=== PATIENT | female | born 1950 | race Caucasian/White ===

== ENCOUNTER 2018-12-21 11:59 | Emergency (ER) | payer BC ==
--- NOTE | 2018-12-21 12:57 | CT ---
Head CT Technique: Multiple axial sections through the brain were obtained. Intravenous contrast was not utilized. Comparison: No previous intracranial imaging is available. Findings: Ventricles along with the basal cisterns and sulci over the convexities are within normal limits for the patient's age. No abnormal parenchymal densities are seen. No evidence of intracranial hemorrhage, midline shift or mass effect is seen. Bone window settings were obtained which show no discrete calvarial abnormality. Visualized sinuses are clear. Impression: 1. Nothing acute is appreciated on noncontrast head CT exam. Diagnostic code #1
--- NOTE | 2018-12-21 13:48 | EDM.PDOC ---
ED HPI GENERAL MEDICAL PROBLEM - General Chief Complaint: Neurological Problem Stated Complaint: BALANCE PROBLEMS/HIGH BP Time Seen by Provider: 12/21/18 12:06 Source of Information: Reports: Patient History Limitations: Reports: No Limitations - History of Present Illness INITIAL COMMENTS - FREE TEXT/NARRATIVE: The patient presents with high blood pressure and left leg odd feeling. She was walking last night at the [facility] and she felt like her left foot was slipping on the concrete. She said this has happened before and she went to her provider and she had fluid in her right ear. She was given some medicine. She thinks it was antivert and she did good. She does have to hold on to the wall when this happens. This happened again last night and she went to the clinic at [place] today. Her blood pressure was elevated in the 170s so they sent her over here for further work up. She has no headache, vision changes, fever, chills, cough, congestion, runny nose, chest pain, shortness of breath, abdominal pain, nausea or vomiting. She has no numbness or weakness. She does not have a history of hypertension. She says the last few times she has been in her blood pressure has been elevated. Onset: Gradual Duration: Day(s): (Last night) Location: Reports: Lower Extremity, Left Improves with: Reports: None Worsens with: Reports: None Associated Symptoms: Reports: No Other Symptoms Treatments [employer]: Reports: Other (see below) Other Treatments [employer]: none Headache Pain Score (Numeric/FACES): 1 - Related Data Allergies Allergy/AdvReac Type Severity Reaction Status Date / Time latex Allergy Rash Verified 12/21/18 12:12 EES Allergy Hives Uncoded 12/21/18 12:12 Home Meds: Home Meds Meclizine [Antivert] 25 mg PO Q6H PRN #20 tab 12/21/18 [Rx] Multivitamin [Multivitamins] 1 cap PO DAILY 12/21/18 [History] Past Medical History - Past Surgical History GI Surgical History: Reports: Cholecystectomy Female Surgical History: Reports: Breast Reduction, Hysterectomy Social & Family History - Tobacco Use Smoking Status *Q: Never Smoker - Caffeine Use Caffeine Use: Reports: Coffee - Recreational Drug Use Recreational Drug Use: No ED ROS GENERAL - Review of Systems Review Of Systems: See Below Constitutional: Reports: No Symptoms HEENT: Reports: No Symptoms Respiratory: Reports: No Symptoms Cardiovascular: Reports: No Symptoms Endocrine: Reports: No Symptoms GI/Abdominal: Reports: No Symptoms : Reports: No Symptoms Musculoskeletal: Reports: No Symptoms Skin: Reports: No Symptoms Neurological: Reports: Other (Left leg slipping) ED EXAM, NEURO - Physical Exam Exam: See Below Exam Limited By: No Limitations General Appearance: Alert, No Apparent Distress Ears: Normal External Exam, Normal Canal, Normal TMs, Other (Mild fluid to the right ear) Nose: Normal Inspection Head Exam: Atraumatic, Normocephalic Neck: Normal Inspection Respiratory/Chest: No Respiratory Distress, Lungs Clear, Normal Breath Sounds Cardiovascular: Regular Rate, Rhythm, No Edema, No Murmur GI/Abdominal: Soft, Non-Tender, No Organomegaly, No Mass Neurological: Alert, No Motor/Sensory Deficits, Oriented x 3 EKG INTERPRETATION EKG Date: 12/21/18 Time: 12:51 Rhythm: NSR Rate (Beats/Min): 76 [place]: Normal P-Wave: Present QRS: Normal ST-T: Normal QT: Normal Course - Vital Signs Last Recorded V/S: Last Vital Signs Temp 96.8 F 12/21/18 12:07 Pulse 79 12/21/18 12:07 Resp 20 12/21/18 12:07 BP 172/96 H 12/21/18 12:07 Pulse Ox 99 12/21/18 12:07 - Orders/Labs/Meds Orders: Active Orders 24 hr Category Date Time Status Cardiac Monitoring [RC] . DIRECTED Care 12/21/18 12:29 Active EKG Documentation Completion [RC] STAT Care 12/21/18 12:29 Active Labs: Laboratory Tests 12/21/18 12/21/18 Range/Units 12:45 12:45 WBC 7.95 (3.98-10.04) K/mm3 RBC 4.61 (3.98-5.22) M/mm3 Hgb 13.5 (11.2-15.7) gm/L Hct 42.0 (34.1-44.9) % MCV 91.1 (79.4-94.8) fl MCH 29.3 (25.6-32.2) pg MCHC 32.1 L (32.2-35.5) g/dl RDW Std Deviation 45.3 (36.4-46.3) fL Plt Count 302 (182-369) K/mm3 MPV 8.7 L (9.4-12.3) fl Neut % (Auto) 58.8 (34.0-71.1) % Lymph % (Auto) 32.6 (19.3-51.7) % [place] % (Auto) 7.4 (4.7-12.5) % Eos % (Auto) 0.6 L (0.7-5.8) Baso % (Auto) 0.5 (0.1-1.2) % Neut # (Auto) 4.67 (1.56-6.13) K/mm3 Lymph # (Auto) 2.59 (1.18-3.74) K/mm3 [place] # (Auto) 0.59 H (0.24-0.36) K/mm3 Eos # (Auto) 0.05 (0.04-0.36) K/mm3 Baso # (Auto) 0.04 (0.01-0.08) K/mm3 Sodium 139 (136-145) mEq/L Potassium 4.1 (3.5-5.1) mEq/L Chloride 104 (98-107) mEq/L Carbon Dioxide 28 (21-32) mEq/L Anion Gap 11.1 (5-15) BUN 20 H (7-18) mg/dL Creatinine 1.0 (0.55-1.02) mg/dL Est Cr Clr Drug Dosing 49.80 mL/min Estimated GFR (MDRD) 55 (>60) mL/min BUN/Creatinine Ratio 20.0 H (14-18) Glucose 97 (80-115) mg/dL Calcium 9.3 (8.5-10.1) mg/dL Magnesium 2.3 (1.8-2.4) mg/dl Total Bilirubin 0.2 (0.2-1.0) mg/dL AST 17 (15-37) U/L ALT 27 (14-59) U/L Alkaline Phosphatase 87 (46-116) U/L Troponin I < 0.017 (0.00-0.056) ng/mL Total Protein 7.2 (6.4-8.2) g/dl Albumin 3.5 (3.4-5.0) g/dl Globulin 3.7 gm/dL Albumin/Globulin Ratio 1.0 (1-2) - Re-Assessments/Exams Free Text/Narrative Re-Assessment/Exam: 12/21/18 13:50 I ordered an labs, EKG, and a CT of her head. Her EKG shows a NSR with no acute changes. The CT of her head shows nothing acute. 12/21/18 13:55 Her CBC and CMP looks good. Her troponin is negative. This is an odd presentation for stroke. Her symptoms sound more like an inner ear issue. I will start her on some antivert. I will talk to her about starting something low dose for hypertension. Departure - Departure Time of Disposition: 14:05 Disposition: Home, Self-Care 01 Condition: Good Clinical Impression: Fluid level behind tympanic membrane of right ear, Transient left leg weakness - Discharge Information *PRESCRIPTION DRUG MONITORING PROGRAM REVIEWED*: Not Applicable *COPY OF PRESCRIPTION DRUG MONITORING REPORT IN PATIENT JESIKA: Not Applicable Prescriptions: Meclizine [Antivert] 25 mg PO Q6H PRN #20 tab PRN Reason: Dizziness Referrals: Yokasta Sandoval NP [Primary Care Provider] - Adela Escoto NP [ED Midlevel Provider] - 1 Week Forms: ED Department Discharge Additional Instructions: Take the antivert 25mg by mouth every 6 hours as needed for any dizziness or slipping of your left leg. Keep exercising and that should help with your blood pressure. I have scheduled an MRI of your brain for 1:30. Please come early to register. Follow up with Adela Escoto in our clinic in 1 week. Please return if you are worse. Check your blood pressure periodically over the next couple of weeks. If it remains high, you may need to start treatment. - My Orders Last 24 Hours: My Active Orders 12/21/18 12:29 Cardiac Monitoring [RC] . DIRECTED EKG Documentation Completion [RC] STAT - Assessment/Plan Last 24 Hours: My Active Orders 12/21/18 12:29 Cardiac Monitoring [RC] . DIRECTED EKG Documentation Completion [RC] STAT
== END 2018-12-21 14:28 | disposition home or self-care (01) ==
LOC: JD.ED 11:59
DX: H93.91 Unspecified disorder of right ear (principal); R53.1 Weakness; Z91.040 Latex allergy status
CPT/HCPCS: 36415; 70450; 70450-26; 80053; 83735; 84484; 85025; 93005; 93010; 99284; 99284-25